=== PATIENT | male | born 1960 | race Caucasian/White ===

== ENCOUNTER → 2020-02-04 | Outpatient (CLI) | payer OTHER ==
[2020-02-04 12:22] LABS: HCT 41.3 % (39.0-53.0); HGB 14.1 gm/dL (13.0-17.5); MCH 34.3 pg (25.0-35.0); MCHC 34.2 g/dL (31.0-37.0); MCV 100.3 fL (80.0-100.0); Mean Platelet Volume 7.9; Platelet Count 100 k/uL (150-450); RBC 4.12 m/uL (4.30-5.90); WBC 4.2 k/uL (3.8-10.6)
[2020-02-04 12:34] LABS: Ionized Calcium 4.5 mg/dL (4.5-5.3)
[2020-02-04 19:41] LABS: Albumin 4.5 g/dL (3.80-4.90); Albumin/Globulin Ratio 2.14 (1.60-3.17); Bilirubin, Conjugated 0.4 mg/dL (0.20-0.40); Bilirubin,Unconjugated 0.9 mg/dL; Globulin 2.1 g/dL (1.6-3.3); Total Bilirubin 1.3 mg/dL (0.2-1.2); Total Protein 6.6 g/dL (6.2-8.2)
[2020-02-04 20:04] LABS: Hepatitis A Antibody IgM Non-Reactive (Non-Reactive); Hepatitis B Core IgM Non-Reactive (Non-Reactive); Hepatitis B Surface Antigen Non-Reactive (Non-Reactive); Hepatitis C IgG Antibody Non-Reactive (Non-Reactive)
[2020-02-04 22:19] LABS: Hemoglobin A1C 8.5 % (4.0-6.0)
== END | disposition home or self-care (01) ==
LOC: LABWHC1 11:33
PROVIDERS: ATTEND Internal Medicine
DX: I10 Essential (primary) hypertension (principal); E11.9 Type 2 diabetes mellitus without complications; R94.5 Abnormal results of liver function studies; H53.8 Other visual disturbances
CPT/HCPCS: 36415; 80074; 80076; 82330; 83036; 85027

== ENCOUNTER → 2020-10-12 | Outpatient (CLI) | payer OTHER ==
--- NOTE | 2020-10-12 10:00 | US ---
EXAMINATION TYPE: US liver DATE OF EXAM: 10/12/2020 COMPARISON: 0 CLINICAL HISTORY: R94.5 Abnormal liver function test. Abnormal LFT's EXAM MEASUREMENTS: Liver Length: 20.0 cm Gallbladder Wall: 0.2 cm CBD: 0.3 cm Right Kidney: 13.0 x 4.8 x 5.4 cm Pancreas: wnl, tail obscured by overlying bowel gas Liver: Enlarged Gallbladder: wnl Evidence for sonographic Archibald's sign: No CBD: wnl Right Kidney: wnl IMPRESSION: Hepatomegaly.
== END | disposition home or self-care (01) ==
LOC: RADUSWWP 09:34
PROVIDERS: ATTEND Internal Medicine
DX: R16.0 Hepatomegaly, not elsewhere classified (principal); R94.5 Abnormal results of liver function studies
CPT/HCPCS: 76705

== ENCOUNTER → 2020-10-27 | Outpatient (CLI) | payer OTHER ==
[2020-10-27 16:12] LABS: HGB 13.9 g/dL (13.0-17.0); MCH 33.8 pg (27.0-32.0); MCHC 33.9 g/dL (32.0-37.0); MCV 99.8 fL (80.0-97.0); Mean Platelet Volume 10.4 fL (9.5-12.2); Platelet Count 102 X 10*3/uL (140-440); RBC 4.11 X 10*6/uL (4.40-5.60)
[2020-10-27 17:09] LABS: INR 1.01 (0.90-1.11)
[2020-10-27 17:35] LABS: % Iron Saturation 36.44 (15.00-50.00); Albumin 4.7 g/dL (3.80-4.90); Albumin/Globulin Ratio 2.61 (1.60-3.17); Bilirubin, Conjugated 0.3 mg/dL (0.20-0.40); Bilirubin,Unconjugated 0.7 mg/dL; Globulin 1.8 g/dL (1.6-3.3); Total Protein 6.5 g/dL (6.2-8.2)
[2020-10-28 14:59] LABS: Albumin 4.19 g/dL (3.80-4.90); Gamma Globulin 0.89 g/dL (0.70-1.50)
== END | disposition home or self-care (01) ==
LOC: LABWHC1 09:58
PROVIDERS: ATTEND Physician Assistant
DX: R74.01 Elevation of levels of liver transaminase levels (principal)
CPT/HCPCS: 36415; 80076; 82103; 82390; 82728; 83516; 83540; 83550; 84165; 85027; 85610; 86038

== ENCOUNTER 2020-11-09 06:37 | Day surgery (SDC) | payer OTHER ==
[2020-11-05 08:18] VITALS: BMI 35.9
[~2020-11-09 06:37] MED LIST: LACTATED RINGERS 1,000 ML IV SCH; LIDOCAINE 1% (10MG/ML) FOR IV START INTRADERMA PRN
[2020-11-09 07:17] VITALS: TEMP 97.3
[2020-11-09 07:20] LABS: Glucose,Whole Blood 182 mg/dL (75-99)
[2020-11-09] MEDS ORDERED: PROPOFOL 10 MG/ML 20 ML VIAL IV ONE ×2 (07:38)
[2020-11-09 08:25] VITALS: RESP 16
--- NOTE | 2020-11-09 08:29 | P.PCN ---
Date of Procedure: 11/09/20 Description of Procedure: BRIEF HISTORY: Patient is a 60-year-old male presenting for outpatient colonoscopy for evaluation of family history of colon cancer. Last colonoscopy 5 years ago. He has a family history of colon cancer in his father. He denies any change in bowel habits or blood per rectum. PROCEDURE PERFORMED: Colonoscopy with polypectomy. PREOPERATIVE DIAGNOSIS: Family history of colon cancer, last colonoscopy 5 years ago. ESTIMATED BLOOD LOSS: Minimal. IV sedation per Anesthesia. PROCEDURE: After informed consent was obtained, the patient, was brought into the endoscopy unit. IV sedation was administered by Anesthesia under continuous monitoring. Digital rectal examination was normal. Initially the Olympus CF-190 flexible video colonoscope was then inserted in the rectum, gradually advanced into the cecum without any difficulty. Careful examination was performed as the scope was gradually being withdrawn. Ileocecal valve and the appendiceal orifice were visualized and appeared normal. Prep was excellent. Mucosa of the cecum, ascending colon, transverse colon, descending colon, sigmoid colon, and rectum appeared normal. A few scattered diverticula noted in the sigmoid colon. A flat 13 mm ascending colon polyp was removed with cold snare polypectomy. Retroflexion was performed in the rectum and no lesions were seen. The patient tolerated the procedure well. IMPRESSION: Large flat ascending colon polyp removed with cold snare polypectomy. Mild sigmoid diverticulosis.. RECOMMENDATIONS: Findings of this examination were discussed with the patient and his family. Okay to resume diet. Okay to resume medications. Await pathology from poly pectomy. Recommend repeat colonoscopy in 3 years for high risk polyp pending pathology from polypectomy.
[2020-11-09 08:41] VITALS: BP 124/79; PULSE 46
== END 2020-11-09 09:23 | disposition home or self-care (01) ==
LOC: ORWHC2ENDO 06:37
PROVIDERS: ATTEND Internal Medicine
DX: Z12.11 Encounter for screening for malignant neoplasm of colon (principal); D12.2 Benign neoplasm of ascending colon; K57.30 Diverticulosis of large intestine without perforation or abscess without bleeding; Z80.0 Family history of malignant neoplasm of digestive organs; I10 Essential (primary) hypertension; G47.33 Obstructive sleep apnea (adult) (pediatric); N28.9 Disorder of kidney and ureter, unspecified; E66.01 Morbid (severe) obesity due to excess calories; Z68.35 Body mass index [BMI] 35.0-35.9, adult; Z87.891 Personal history of nicotine dependence; Z98.890 Other specified postprocedural states; Z90.89 Acquired absence of other organs; Z79.84 Long term (current) use of oral hypoglycemic drugs; Z79.890 Hormone replacement therapy; Z79.899 Other long term (current) drug therapy; Z88.2 Allergy status to sulfonamides
CPT/HCPCS: 88305; 45385; J2704

== ENCOUNTER 2021-11-22 17:21 | Observation (INO) | payer OTHER ==
[2021-11-22 18:15] VITALS: TEMP 97.8
[2021-11-22] MEDS ORDERED: ONDANSETRON 4 MG/2 ML VIAL IVP STA (22:53)
[2021-11-22] MEDS ORDERED: SODIUM CHLORIDE 0.9% 1,000 ML IV STA (22:53)
--- NOTE | 2021-11-22 22:54 | ED ---
Weakness HPI - General Chief complaint: Dizziness Stated complaint: Dizzy,Vomiting Time Seen by Provider: 11/22/21 22:53 Source: patient, RN notes reviewed, old records reviewed Mode of arrival: ambulatory Limitations: no limitations - History of Present Illness Initial comments: This is a 61-year-old male DF for evaluation. Patient's going on 3 days of persistent nausea vomiting dizziness and not feeling well. She does have history of diabetes high blood pressure. Patient states he does feel high blood pressure is been acting up. Nausea, vomiting. No fevers. No diarrhea. No abdominal pain. Patient does feels that he may be dehydrated MD Complaint: generalized weakness, lack of energy -: days(s) (3) Location: generalized Severity: mild, moderate Severity scale (1-10): 4 Consistency: intermittent Improves with: none Worsens with: none Context: history of similar Associated Symptoms: loss of appetite, nausea/vomiting, myalgias - Related Data Home Medications Medication Instructions Recorded Confirmed Levothyroxine Sodium [Synthroid] 175 mcg PO DAILY 11/05/20 11/23/21 Losartan [Cozaar] 50 mg PO DAILY 11/05/20 11/23/21 Metoprolol Tartrate [Lopressor] 50 mg PO BID 11/05/20 11/23/21 metFORMIN HCL 500 mg PO TID 11/05/20 11/23/21 Liraglutide [Victoza 3-José Antonio] 1.8 mg SQ DAILY 11/23/21 11/23/21 Pioglitazone [Actos] 30 mg PO DAILY 11/23/21 11/23/21 Previous Rx's Medication Instructions Recorded Ondansetron [Zofran] 4 mg PO Q4H PRN #30 tab 11/23/21 Allergies Allergy/AdvReac Type Severity Reaction Status Date / Time Sulfa (Sulfonamide Allergy whole body Verified 11/23/21 07:02 Antibiotics) aches Review of Systems ROS Statement: Those systems with pertinent positive or pertinent negative responses have been documented in the HPI. ROS Other: All systems not noted in ROS Statement are negative. Past Medical History Past Medical History: Diabetes Mellitus, Hypertension, Sleep Apnea/CPAP/BIPAP, Thyroid Disorder Additional Past Medical History / Comment(s): hx migraines, elevated liver enzymes, History of Any Multi-Drug Resistant Organisms: None Reported Past Surgical History: Ear Surgery, Orthopedic Surgery, Tonsillectomy Additional Past Surgical History / Comment(s): colonoscopy, arthroscopy left knee, surgery for fx left shoulder, Past Anesthesia/Blood Transfusion Reactions: No Reported Reaction Past Psychological History: No Psychological Hx Reported Smoking Status: Former smoker Past Alcohol Use History: Occasional Past Drug Use History: None Reported - Past Family History Father Family Medical History: Cancer Additional Family Medical History / Comment(s): colon cancer Mother Family Medical History: Cancer Additional Family Medical History / Comment(s): skin General Exam Limitations: no limitations General appearance: alert, in no apparent distress Head exam: Present: atraumatic, normocephalic, normal inspection Eye exam: Present: normal appearance, PERRL, EOMI. Absent: scleral icterus, conjunctival injection, periorbital swelling ENT exam: Present: normal exam, mucous membranes moist Neck exam: Present: normal inspection. Absent: tenderness, meningismus, lymphadenopathy Respiratory exam: Present: normal lung sounds bilaterally. Absent: respiratory distress, wheezes, rales, rhonchi, stridor Cardiovascular Exam: Present: regular rate, normal rhythm, normal heart sounds. Absent: systolic murmur, diastolic murmur, rubs, gallop, clicks GI/Abdominal exam: Present: soft, normal bowel sounds. Absent: distended, tende rness, guarding, rebound, rigid Extremities exam: Present: normal inspection, full ROM, normal capillary refill. Absent: tenderness, pedal edema, joint swelling, calf tenderness Back exam: Present: normal inspection Neurological exam: Present: alert, oriented X3, CN II-XII intact Psychiatric exam: Present: normal affect, normal mood Skin exam: Present: warm, dry, intact, normal color. Absent: rash Course Vital Signs 11/22/21 11/22/21 11/23/21 18:13 23:44 00:30 Temperature 97.8 F Pulse Rate 68 65 70 Respiratory 20 16 18 Rate Blood Pressure 181/98 171/66 173/100 O2 Sat by Pulse 97 98 98 Oximetry 11/23/21 11/23/21 11/23/21 01:47 04:49 05:44 Temperature Pulse Rate 64 69 64 Respiratory 16 16 16 Rate Blood Pressure 156/89 130/80 134/81 O2 Sat by Pulse 97 95 96 Oximetry - Reevaluation(s) Reevaluation #1: Medical record is reviewed Patient maintained feel nauseous and not feel well here in the emergency department although improved Patient informed of results and questions answered - Consultations Consultation #1: Spoke with sound who agree to admit this patient EKG Findings - EKG Comments: EKG Findings:: EKG sinus rhythm 64 NM 250 QRS 157 QTc 466 Medical Decision Making - Medical Decision Making 61 male to the emergency department for severe dizziness nausea vomiting as well. Patient has mild troponin leak [place] for trending of troponin is IV hydration monitoring. - Lab Data Result diagrams: 11/23/21 05:45 11/23/21 05:45 Lab Results 11/22/21 11/22/21 11/22/21 Range/Units 23:44 23:44 23:44 WBC 4.0 (3.8-10.6) k/uL RBC 4.30 (4.30-5.90) m/uL Hgb 15.0 (13.0-17.5) gm/dL Hct 43.9 (39.0-53.0) % MCV 102.0 H (80.0-100.0) fL MCH 34.9 (25.0-35.0) pg MCHC 34.2 (31.0-37.0) g/dL RDW 12.9 (11.5-15.5) % Plt Count 98 L (150-450) k/uL MPV 7.7 Neutrophils % 45 % Lymphocytes % 44 % Monocytes % 6 % Eosinophils % 2 % Basophils % 0 % Neutrophils # 1.8 (1.3-7.7) k/uL Lymphocytes # 1.7 (1.0-4.8) k/uL Monocytes # 0.2 (0-1.0) k/uL Eosinophils # 0.1 (0-0.7) k/uL Basophils # 0.0 (0-0.2) k/uL Manual Slide Review Performed Macrocytosis Slight PT 11.2 (9.0-12.0) sec INR 1.0 (<1.2) APTT 22.8 (22.0-30.0) sec Sodium 137 (137-145) mmol/L Potassium 3.6 (3.5-5.1) mmol/L Chloride 104 (98-107) mmol/L Carbon Dioxide 22 (22-30) mmol/L Anion Gap 11 mmol/L BUN 10 (9-20) mg/dL Creatinine 0.60 L (0.66-1.25) mg/dL Est GFR (CKD-EPI)AfAm >90 (>60 ml/min/1.73 sqM) Est GFR (CKD-EPI)NonAf >90 (>60 ml/min/1.73 sqM) Glucose 132 H (74-99) mg/dL Plasma Lactic Acid Sergio (0.7-2.0) mmol/L Calcium 8.8 (8.4-10.2) mg/dL Phosphorus 4.1 (2.5-4.5) mg/dL Magnesium 2.2 (1.6-2.3) mg/dL Total Bilirubin 1.4 H (0.2-1.3) mg/dL AST 56 (17-59) U/L ALT 74 H (4-49) U/L Alkaline Phosphatase 69 (38-126) U/L Troponin I (0.000-0.034) ng/mL NT-Pro-B Natriuret Pep pg/mL Total Protein 8.0 (6.3-8.2) g/dL Albumin 4.8 (3.5-5.0) g/dL Urine Color Urine Appearance (Clear) Urine pH (5.0-8.0) Ur Specific [place] (1.001-1.035) Urine Protein (Negative) Urine Glucose (UA) (Negative) Urine Ketones (Negative) Urine Blood (Negative) Urine Nitrite (Negative) Urine Bilirubin (Negative) Urine Urobilinogen (<2.0) mg/dL Ur Leukocyte Esterase (Negative) Urine RBC (0-5) /hpf Urine WBC (0-5) /hpf Hyaline Casts (0-2) /lpf Urine Mucus (None) /hpf 11/22/21 11/22/21 11/22/21 Range/Units 23:44 23:44 23:44 WBC (3.8-10.6) k/uL RBC (4.30-5.90) m/uL Hgb (13.0-17.5) gm/dL Hct (39.0-53.0) % MCV (80.0-100.0) fL MCH (25.0-35.0) pg MCHC (31.0-37.0) g/dL RDW (11.5-15.5) % Plt Count (150-450) k/uL MPV Neutrophils % % Lymphocytes % % Monocytes % % Eosinophils % % Basophils % % Neutrophils # (1.3-7.7) k/uL Lymphocytes # (1.0-4.8) k/uL Monocytes # (0-1.0) k/uL Eosinophils # (0-0.7) k/uL Basophils # (0-0.2) k/uL Manual Slide Review Macrocytosis PT (9.0-12.0) sec INR (<1.2) APTT (22.0-30.0) sec Sodium (137-145) mmol/L Potassium (3.5-5.1) mmol/L Chloride (98-107) mmol/L Carbon Dioxide (22-30) mmol/L Anion Gap mmol/L BUN (9-20) mg/dL Creatinine (0.66-1.25) mg/dL Est GFR (CKD-EPI)AfAm (>60 ml/min/1.73 sqM) Est GFR (CKD-EPI)NonAf (>60 ml/min/1.73 sqM) Glucose (74-99) mg/dL Plasma Lactic Acid Sergio 1.3 (0.7-2.0) mmol/L Calcium (8.4-10.2) mg/dL Phosphorus (2.5-4.5) mg/dL Magnesium (1.6-2.3) mg/dL Total Bilirubin (0.2-1.3) mg/dL AST (17-59) U/L ALT (4-49) U/L Alkaline Phosphatase (38-126) U/L Troponin I 0.013 (0.000-0.034) ng/mL NT-Pro-B Natriuret Pep 88 pg/mL Total Protein (6.3-8.2) g/dL Albumin (3.5-5.0) g/dL Urine Color Urine Appearance (Clear) Urine pH (5.0-8.0) Ur Specific [place] (1.001-1.035) Urine Protein (Negative) Urine Glucose (UA) (Negative) Urine Ketones (Negative) Urine Blood (Negative) Urine Nitrite (Negative) Urine Bilirubin (Negative) Urine Urobilinogen (<2.0) mg/dL Ur Leukocyte Esterase (Negative) Urine RBC (0-5) /hpf Urine WBC (0-5) /hpf Hyaline Casts (0-2) /lpf Urine Mucus (None) /hpf 11/23/21 Range/Units 00:22 WBC (3.8-10.6) k/uL RBC (4.30-5.90) m/uL Hgb (13.0-17.5) gm/dL Hct (39.0-53.0) % MCV (80.0-100.0) fL MCH (25.0-35.0) pg MCHC (31.0-37.0) g/dL RDW (11.5-15.5) % Plt Count (150-450) k/uL MPV Neutrophils % % Lymphocytes % % Monocytes % % Eosinophils % % Basophils % % Neutrophils # (1.3-7.7) k/uL Lymphocytes # (1.0-4.8) k/uL Monocytes # (0-1.0) k/uL Eosinophils # (0-0.7) k/uL Basophils # (0-0.2) k/uL Manual Slide Review Macrocytosis PT (9.0-12.0) sec INR (<1.2) APTT (22.0-30.0) sec Sodium (137-145) mmol/L Potassium (3.5-5.1) mmol/L Chloride (98-107) mmol/L Carbon Dioxide (22-30) mmol/L Anion Gap mmol/L BUN (9-20) mg/dL Creatinine (0.66-1.25) mg/dL Est GFR (CKD-EPI)AfAm (>60 ml/min/1.73 sqM) Est GFR (CKD-EPI)NonAf (>60 ml/min/1.73 sqM) Glucose (74-99) mg/dL Plasma Lactic Acid Sergio (0.7-2.0) mmol/L Calcium (8.4-10.2) mg/dL Phosphorus (2.5-4.5) mg/dL Magnesium (1.6-2.3) mg/dL Total Bilirubin (0.2-1.3) mg/dL AST (17-59) U/L ALT (4-49) U/L Alkaline Phosphatase (38-126) U/L Troponin I (0.000-0.034) ng/mL NT-Pro-B Natriuret Pep pg/mL Total Protein (6.3-8.2) g/dL Albumin (3.5-5.0) g/dL Urine Color Yellow Urine Appearance Clear (Clear) Urine pH 6.0 (5.0-8.0) Ur Specific [place] 1.022 (1.001-1.035) Urine Protein 1+ H (Negative) Urine Glucose (UA) Trace H (Negative) Urine Ketones 1+ H (Negative) Urine Blood Negative (Negative) Urine Nitrite Negative (Negative) Urine Bilirubin Negative (Negative) Urine Urobilinogen 3.0 (<2.0) mg/dL Ur Leukocyte Esterase Negative (Negative) Urine RBC <1 (0-5) /hpf Urine WBC 1 (0-5) /hpf Hyaline Casts 3 H (0-2) /lpf Urine Mucus Many H (None) /hpf Disposition Clinical Impression: Dehydration, Nausea & vomiting Disposition: ADMITTED IP TO THIS [facility] Condition: Good Is patient prescribed a controlled substance at d/c from ED?: No
[2021-11-22] MEDS: SODIUM CHLORIDE 0.9% 1,000 ML IV STA (23:38)
[2021-11-23 00:03] LABS: Partial Thromboplastin Time 22.8 sec (22.0-30.0); Prothrombin Time 11.2 sec (9.0-12.0)
[2021-11-23 00:05] LABS: ALT 74 U/L (4-49); AST 56 U/L (17-59); African American GFR (CKD) >90 (>60 ml/min/1.73 sqM); Albumin 4.8 g/dL (3.5-5.0); Alkaline Phosphatase 69 U/L (38-126); Anion Gap 11 mmol/L; Blood Urea Nitrogen 10 mg/dL (9-20); Calcium 8.8 mg/dL (8.4-10.2); Carbon Dioxide 22 mmol/L (22-30); Chloride 104 mmol/L (98-107); Glucose 132 mg/dL (74-99); Magnesium 2.2 mg/dL (1.6-2.3); Non-African American GFR(CKD) >90 (>60 ml/min/1.73 sqM); Phosphorus 4.1 mg/dL (2.5-4.5); Potassium 3.6 mmol/L (3.5-5.1); Sodium 137 mmol/L (137-145); Total Bilirubin 1.4 mg/dL (0.2-1.3)
[2021-11-23 00:20] LABS: Basophils % (A) 0 %; Eosinophils # (A) 0.1 k/uL (0-0.7); Eosinophils % (A) 2 %; HCT 43.9 % (39.0-53.0); Lymphocytes # (A) 1.7 k/uL (1.0-4.8); Lymphocytes % (A) 44 %; MCH 34.9 pg (25.0-35.0); MCHC 34.2 g/dL (31.0-37.0); Macrocytosis Slight; Mean Platelet Volume 7.7; Monocytes # (A) 0.2 k/uL (0-1.0); Monocytes % (A) 6 %; Neutrophils # (A) 1.8 k/uL (1.3-7.7); Neutrophils % (A) 45 %; RDW 12.9 % (11.5-15.5)
[2021-11-23] MEDS: SODIUM CHLORIDE 0.9% 1,000 ML IV STA (00:43)
[2021-11-23 00:53] LABS: Appearance,Urine Clear (Clear); Bilirubin,Urine Negative (Negative); Blood,Urine Negative (Negative); Color,Urine Yellow; Glucose,Urine (UA) Trace (Negative); Hyaline Casts,Urine 3 /lpf (0-2); Ketones,Urine 1+ (Negative); Leukocyte Esterase,Urine Negative (Negative); Mucus,Urine Many /hpf; Nitrite,Urine Negative (Negative); Protein,Urine 1+ (Negative); RBC,Urine <1 /hpf (0-5); Specific Gravity,Urine 1.022 (1.001-1.035); WBC,Urine 1 /hpf (0-5)
[2021-11-23 00:59] LABS: Platelet Count 98 k/uL (150-450)
[2021-11-23 01:48] VITALS: RESP 16
[2021-11-23] MEDS ORDERED: NALOXONE 0.4 MG/ML 1 ML VIAL IV PRN (02:18)
[2021-11-23] MEDS ORDERED: LORazepam 2 MG/ML INJ IV PRN (02:18)
[2021-11-23] MEDS ORDERED: MORPHINE SULFATE 4 MG/ML SYRINGE IV PRN (02:18)
[2021-11-23] MEDS ORDERED: ONDANSETRON 4 MG/2 ML VIAL IVP PRN (02:18)
--- NOTE | 2021-11-23 04:09 | P.HPIM ---
History of Present Illness H&P Date: 11/23/21 Patient is a 59-year-old male with a PMH of type II DM, hypothyroidism, hypertension who presents to the emergency room with complaints of intractable nausea and vomiting. The patient reports that his symptoms started this past Sunday evening. He reports sudden onset of nausea with subsequent multiple episodes of vomiting. Denied noticing any blood or bile in the vomitus. Reports inability to tolerate liquids or solids since onset of symptoms. Reports noticing darker color to the urine but denied any additional complaints. Patient denied expressing chest discomfort, shortness of breath, or palpitations. He also denied nausea, vomiting, abdominal pain, diarrhea. Laboratory evaluation the emergency room was remarkable for troponin of 0.013, lactic acid 1.3, total bilirubin 1.4, platelets 98 with an unremarkable UA. An EKG revealed sinus rhythm with first-degree AV block with right bundle branch block at 64 bpm with no prior EKGs available for comparison. Review of systems: Pertinent positives and negatives as discussed in HPI, a complete review of systems was performed and all other systems are negative. Physical examination: General: non toxic, no distress, appears at stated age, obese Derm: no unusual rashes/lesions no unusual ecchymoses, warm, dry Head: atraumatic, normocephalic, symmetric Eyes: EOMI, no lid lag, anicteric sclera, pupils equal round reactive to light ENT: Nose and ears atraumatic, no thrush, no pharyngeal erythema Neck: No thyromegaly, no cervical lymphadenopathy, trachea midline, supple Mouth: no lip lesion, mucus membranes moist Cardiovascular: S1S2 reg, no murmur, positive posterior tibial pulse bilateral, no edema, capillary refill less than 2 seconds Lungs: CTA bilateral, no rhonchi, no rales , no accessory muscle use Abdominal: soft, nontender to palpation, no guarding, no appreciable organomegaly, normal bowel sounds Ext: no gross muscle atrophy, muscle strength 5 out of 5 in all 4 extremities grossly, no contractures, Neuro: CN II-XI grossly intact, light touch intact all 4 extremities, finger to nose within normal limits, Psych: Alert, oriented, appropriate affect Assessment/plan Intractable nausea and vomiting -Antiemetics -IV fluids Borderline elevated troponin, likely due to demand ischemia in setting of dehydr ation and vomiting -Continue to trend troponin -Cardiac monitoring -Patient denied chest discomfort or shortness of breath Thrombocytopenia, similar to baseline -Monitor for now Chronic conditions: Type II DM, hepatitis, hypertension -Check A1c -Insulin sliding scale and blood glucose monitoring -Continue with remaining home medications DVT prophylaxis -IPCDs The patient is admitted with an anticipated less than 2 midnight stay for evaluation of nausea and vomiting CODE STATUS: Full Code Discussed with: Patient Anticipated discharge date: 11/[address]: Home Past Medical History Past Medical History: Diabetes Mellitus, Hypertension, Sleep Apnea/CPAP/BIPAP, Thyroid Disorder Additional Past Medical History / Comment(s): hx migraines, elevated liver enzymes, History of Any Multi-Drug Resistant Organisms: None Reported Past Surgical History: Ear Surgery, Orthopedic Surgery, Tonsillectomy Additional Past Surgical History / Comment(s): colonoscopy, arthroscopy left knee, surgery for fx left shoulder, Past Anesthesia/Blood Transfusion Reactions: No Reported Reaction Past Psychological History: No Psychological Hx Reported Smoking Status: Former smoker Past Alcohol Use History: Occasional Past Drug Use History: None Reported - Past Family History Father Family Medical History: Cancer Additional Family Medical History / Comment(s): colon cancer Mother Family Medical History: Cancer Additional Family Medical History / Comment(s): skin Medications and Allergies Home Medications Medication Instructions Recorded Confirmed Type Glimepiride [Amaryl] 4 mg PO BID 11/05/20 11/05/20 History Levothyroxine Sodium [Synthroid] 175 mcg PO QAM 11/05/20 11/05/20 History Linagliptin [Tradjenta] 5 mg PO 199911/05/20 11/09/20 History Losartan [Cozaar] 50 mg PO HS 11/05/20 11/05/20 History Metoprolol Tartrate [Lopressor] 50 mg PO BID 11/05/20 11/05/20 History metFORMIN HCL 500 mg PO BID-W/MEALS 11/05/20 11/05/20 History Allergies Allergy/AdvReac Type Severity Reaction Status Date / Time Sulfa (Sulfonamide Allergy whole body Verified 11/09/20 07:04 Antibiotics) aches Physical Exam Vitals: Vital Signs Temp Pulse Resp BP Pulse Ox 11/23/21 01:47 64 16 156/89 97 11/23/21 00:30 70 18 173/100 98 11/22/21 23:44 65 16 171/66 98 11/22/21 18:13 97.8 F 68 20 181/98 97 Intake and Output 11/22/21 11/22/21 11/23/21 14:59 22:59 06:59 Other: Weight 113.398 kg Results CBC & Chem 7: 11/22/21 23:44 11/22/21 23:44 Labs: Abnormal Lab Results - Last 24 Hours (Table) 11/22/21 11/22/21 11/23/21 Range/Units 23:44 23:44 00:22 MCV 102.0 H (80.0-100.0) fL Plt Count 98 L (150-450) k/uL Creatinine 0.60 L (0.66-1.25) mg/dL Glucose 132 H (74-99) mg/dL Total Bilirubin 1.4 H (0.2-1.3) mg/dL ALT 74 H (4-49) U/L Urine Protein 1+ H (Negative) Urine Glucose (UA) Trace H (Negative) Urine Ketones 1+ H (Negative) Hyaline Casts 3 H (0-2) /lpf Urine Mucus Many H (None) /hpf
[2021-11-23 05:47] VITALS: BP 134/81; PULSE 64
[2021-11-23] MEDS ORDERED: INSULIN ASPART (NovoLOG) 100 UNIT/ML VIAL SQ SCH (07:30)
[2021-11-23 08:03] LABS: Glucose,Whole Blood 127 mg/dL (75-99)
[2021-11-23] MEDS: SODIUM CHLORIDE 0.9% 1,000 ML IV SCH ×2 (08:20→10:35)
[2021-11-23] MEDS ORDERED: LEVOTHYROXINE 75 MCG TAB PO SCH (09:00)
[2021-11-23] MEDS ORDERED: LOSARTAN 50 MG TAB PO SCH (09:00)
[2021-11-23] MEDS ORDERED: LEVOTHYROXINE 100 MCG TAB PO SCH (09:00)
[2021-11-23] MEDS ORDERED: METOPROLOL TARTRATE 50 MG TAB PO SCH (09:00)
[2021-11-23 10:41] LABS: African American GFR (CKD) 117.2 (60.0-200.0); Anion Gap 12.5 mmol/L (10.00-18.00); BUN/Creat Ratio 12.14 Ratio (12.00-20.00); Blood Urea Nitrogen 8.5 mg/dL (9.0-27.0); Calcium 8.4 mg/dL (8.7-10.3); Carbon Dioxide 24.5 mmol/L (20.0-27.5); Non-African American GFR(CKD) 101.1 (60.0-200.0); Potassium 3.5 mmol/L (3.5-5.5)
[2021-11-23 13:49] LABS: HGB 13.2 g/dL (13.0-17.0); MCH 34.1 pg (27.0-32.0); MCHC 33.8 g/dL (32.0-37.0); MCV 100.8 fL (80.0-97.0); Mean Platelet Volume 10.5 fL (9.5-12.2); NRBC Per 100 WBC 0 /100 WBCS (0.0-0.0); Platelet Count 94 X 10*3/uL (140-440); RBC 3.87 X 10*6/uL (4.40-5.60); RDW 12.6 % (11.5-14.5); WBC 4.44 X 10*3/uL (4.50-10.00)
--- NOTE | 2021-11-23 14:31 | P.DS ---
Providers Date of admission: 11/23/21 02:18 Expected date of discharge: 11/23/21 Attending physician: Blaise Desouza MD Primary care physician[facility] Course: Intractable nausea and vomiting Borderline elevated troponin, likely due to demand ischemia in setting of dehydration and vomiting Thrombocytopenia, similar to baseline Chronic conditions: Type II DM, hepatitis, hypertension Patient is a 59-year-old male with a PMH of type II DM, hypothyroidism, hypertension who presented to the emergency room with complaints of intractable nausea and vomiting. Laboratory evaluation the emergency room was remarkable for troponin of 0.013, lactic acid 1.3, total bilirubin 1.4, platelets 98 with an unremarkable UA. An EKG revealed sinus rhythm with first-degree AV block with right bundle branch block at 64 bpm with no prior EKGs available for comparison. Pt responded quickly to anti-emetics and IVF. By the time of my evaluation, patient reported resolution of nausea, no further emesis, and of having an appetite. He was able to tolerate a diet prior to discharge. I counseled patient on staying hydrated with water as well as replacing electrolyte losses with electrolyte rich fluid such as Pedialyte. Pt was amenable to going home given prompt resolution of symptoms, and was discharged home same day. Gen: awake, alert HEENT: normocephalic, atraumatic, good hearing acuity, moist mucous membranes Resp: good air exchange, breathing comfortably with no accessory muscle use CVS: good distal perfusion x 4, GI: soft, NTTP, ND : no SPT, no CVAT, brian catheter not present MSK: no pitting edema, no clubbing Neuro: non-focal, moving all extremities Psych: cooperative, euthymic mood Patient Condition at Discharge: Good Plan - Discharge Summary New Discharge Prescriptions: New Ondansetron [Zofran] 4 mg PO Q4H PRN #30 tab PRN Reason: Nausea Continue metFORMIN HCL 500 mg PO TID Losartan [Cozaar] 50 mg PO DAILY Levothyroxine Sodium [Synthroid] 175 mcg PO DAILY Metoprolol Tartrate [Lopressor] 50 mg PO BID Liraglutide [Victoza 3-José Antonio] 1.8 mg SQ DAILY Pioglitazone [Actos] 30 mg PO DAILY Discharge Medication List Levothyroxine Sodium [Synthroid] 175 mcg PO DAILY 11/05/20 [History] Losartan [Cozaar] 50 mg PO DAILY 11/05/20 [History] Metoprolol Tartrate [Lopressor] 50 mg PO BID 11/05/20 [History] metFORMIN HCL 500 mg PO TID 11/05/20 [History] Liraglutide [Victoza 3-José Antonio] 1.8 mg SQ DAILY 11/23/21 [History] Ondansetron [Zofran] 4 mg PO Q4H PRN #30 tab 11/23/21 [Rx] Pioglitazone [Actos] 30 mg PO DAILY 11/23/21 [History] Follow up Appointment(s)/Referral(s): Cristal Wu MD [Primary Care Provider] - 1-2 days Patient Instructions/Handouts: Dizziness (ED) Discharge Disposition: HOME SELF-CARE
[2021-11-23 17:01] LABS: RBC Morphology NORMAL
== END 2021-11-23 10:43 | disposition home or self-care (01) ==
LOC: EC 17:21 → 6NMEDSUR 11-23 02:18
PROVIDERS: ADMIT Internal Medicine; ATTEND Internal Medicine
DX: R11.2 Nausea with vomiting, unspecified (principal); R77.8 Other specified abnormalities of plasma proteins; E86.0 Dehydration; D69.6 Thrombocytopenia, unspecified; E11.9 Type 2 diabetes mellitus without complications; K75.9 Inflammatory liver disease, unspecified; I10 Essential (primary) hypertension; E03.9 Hypothyroidism, unspecified; R63.0 Anorexia; M79.10 Myalgia, unspecified site; G47.30 Sleep apnea, unspecified; G43.909 Migraine, unspecified, not intractable, without status migrainosus; I44.0 Atrioventricular block, first degree; I45.10 Unspecified right bundle-branch block; E66.9 Obesity, unspecified; Z68.33 Body mass index [BMI] 33.0-33.9, adult; Z87.891 Personal history of nicotine dependence; Z79.890 Hormone replacement therapy; Z79.899 Other long term (current) drug therapy; Z79.84 Long term (current) use of oral hypoglycemic drugs; Z88.2 Allergy status to sulfonamides; Z71.3 Dietary counseling and surveillance; Z80.0 Family history of malignant neoplasm of digestive organs; Z80.8 Family history of malignant neoplasm of other organs or systems
CPT/HCPCS: 96361 ×2; 96374; 99285; 36415; 93005; 83880; 80053; 80048; 83605; 83735; 84100; 84484 ×2; 85025; 85027; 85610; 85730; 81001; 83036; G0378; J2405

== ENCOUNTER 2022-11-28 05:45 | Day surgery (SDC) | payer OTHER ==
[~2022-11-28 05:45] MED LIST changes: -LIDOCAINE 1% (10MG/ML) FOR IV START INTRADERMA PRN
[2022-11-28 06:32] VITALS: TEMP 97.4
[2022-11-28 06:43] LABS: Glucose,Whole Blood 100 mg/dL (70-110)
[2022-11-28] MEDS ORDERED: PROPOFOL 10 MG/ML 20 ML VIAL IV ONE (07:00)
[2022-11-28] MEDS ORDERED: GLYCOPYRROLATE 0.2 MG/ML 2 ML VIAL ONE (07:00)
[2022-11-28] MEDS ORDERED: MIDAZOLAM 2 MG/2 ML VIAL ONE (07:00)
--- NOTE | 2022-11-28 07:26 | P.PCN ---
Date of Procedure: 11/28/22 Procedure(s) Performed: Brief history: Patient is a pleasant 62-year-old white male scheduled for an elective upper endoscopy as well as colonoscopy as a part of evaluation of recently diagnosis chronic liver disease/liver cirrhosis and screening for esophageal varices. He also has prior history of colon polyps and family history of colon cancer diagnosed in his father at age 70. Last colonoscopy was noted to have a large flat ascending colon polyp in November 2020 and biopsies revealed adenoma. Procedure performed: Esophagogastroduodenoscopy with biopsy Colonoscopy with snare polypectomy Preoperative diagnosis: History of chronic liver disease/liver cirrhosis/screening for esophageal varices History of colon polyps and family history of colon cancer Anesthesia: MAC Procedure: After informed consent was obtained from the patient was brought into the endoscopy unit and IV sedation was administered by anesthesia under continuous monitoring. Initially upper endoscopy was done. The Olympus GF 160 video endoscope was inserted inserted into the mouth and esophagus intubated without any difficulty and was gradually advanced into the stomach and duodenum and carefully examined. The bulb and second part of the duodenum appeared normal. The scope was then withdrawn into the stomach adequately insufflated with air and upon careful examination the antrum had mild gastritis and biopsies were done from this area. Mucosa of the body, cardia and fundus appeared normal. The scope was then withdrawn into the esophagus. The GE junction was located at 43 cm to the incisors. It appeared irregular and there was a 4 mm tongue of Rodriguez's appearing mucosa just proximal to the GE junction that was biopsied. The rest of esophagus appeared normal patient tolerated the procedure well. At this time the patient continued to remain sedation. Initial digital rectal examination was normal. Olympus CF 160 video colonoscope was then inserted into the rectum and gradually advanced to the cecum without any difficulty. Careful examination was performed as the scope was gradually being withdrawn. The prep was excellent. The cecum, ascending colon, appeared normal. In the transverse colon there was a 5 limited polyp removed by snare polypectomy. Rest of the transverse colon, descending colon, sigmoid colon and rectum appeared normal. Scattered sigmoid diverticulosis. Retroflexion was performed in the rectum and no lesions were noted. Patient tolerated the procedure well. Impression: 1. Upper endoscopy revealed mild antral gastritis and short segment Rodriguez's esophagus but no evidence of gastric or esophageal varices 2. Colonoscopy revealed 5 mm transverse colon polyp status post polypectomy and scattered sigmoid diverticulosis Recommendations: Findings of this examination were discussed with the patient as well as his family. He was advised to follow with the biopsy results. If the biopsy reveals adenoma he can have a repeat colonoscopy in 5 years.
[2022-11-28 07:36] VITALS: RESP 16
[2022-11-28 07:50] VITALS: BP 112/77; PULSE 60
== END 2022-11-28 08:10 | disposition home or self-care (01) ==
LOC: ORWHC2ENDO 05:45
PROVIDERS: ATTEND Internal Medicine Gastroenterology
DX: Z12.11 Encounter for screening for malignant neoplasm of colon (principal); K51.40 Inflammatory polyps of colon without complications; K57.30 Diverticulosis of large intestine without perforation or abscess without bleeding; K29.50 Unspecified chronic gastritis without bleeding; K31.A0 Gastric intestinal metaplasia, unspecified; K74.60 Unspecified cirrhosis of liver; I10 Essential (primary) hypertension; E78.5 Hyperlipidemia, unspecified; E07.9 Disorder of thyroid, unspecified; E11.9 Type 2 diabetes mellitus without complications; Z79.84 Long term (current) use of oral hypoglycemic drugs; Z79.890 Hormone replacement therapy; Z80.0 Family history of malignant neoplasm of digestive organs; Z79.899 Other long term (current) drug therapy; Z88.2 Allergy status to sulfonamides; Z98.890 Other specified postprocedural states
CPT/HCPCS: 88305; 45385; 43239; J2250; J2704

== ENCOUNTER → 2023-06-18 | Outpatient (CLI) | payer OTHER ==
--- NOTE | 2023-06-18 10:48 | US ---
EXAMINATION TYPE: US liver DATE OF EXAM: 06/18/2023 COMPARISON: NONE CLINICAL INDICATION: Male, 63 years old with history of K74.60 UNSPECIFIED CIRRHOSIS OF LIVER; cirrho sis TECHNIQUE: Multiple sonographic images of the right upper quadrant are obtained. FINDINGS: EXAM MEASUREMENTS: Liver Length: 20 cm Gallbladder Wall: .2 cm CBD: .3 cm Right Kidney: 12.2 x 4.7 x 4.7 cm Pancreas: Tail obscured by overlying bowel gas Liver: Increased attenuation hepatomegaly increased coarse echotexture with nodular contour. No tejinder picious observations. Gallbladder: No stones seen Evidence for sonographic Archibald's sign: No CBD: wnl Right Kidney: wnl IMPRESSION: Hepatic cirrhosis without evidence of suspicious observation. No acute process.
== END | disposition home or self-care (01) ==
LOC: RADUSWWP 10:01
PROVIDERS: ATTEND Internal Medicine Gastroenterology
DX: K74.60 Unspecified cirrhosis of liver (principal)
CPT/HCPCS: 76705

== ENCOUNTER → 2023-07-04 | Outpatient (CLI) | payer OTHER ==
[2023-07-04 11:15] LABS: Basophils # (A) 0.03 X 10*3/uL (0.00-0.10); Basophils % (A) 0.8 %; Eosinophils # (A) 0.13 X 10*3/uL (0.04-0.35); Eosinophils % (A) 3.7 %; HCT 42.1 % (39.6-50.0); HGB 13.8 d/dL (13.0-17.0); Lymphocytes # (A) 1.44 X 10*3/uL (0.90-5.00); Lymphocytes % (A) 40.8 %; MCH 33.7 pg (27.0-32.0); MCHC 32.8 d/dL (32.0-37.0); MCV 102.7 FL (80.0-97.0); Mean Platelet Volume 10.4 FL (9.5-12.2); Monocytes # (A) 0.43 X 10*3/uL (0.20-1.00); Monocytes % (A) 12.2 %; NRBC Per 100 WBC 0 X 10*3/uL (0.00-0.01); Neutrophils # (A) 1.47 X 10*3/uL (1.80-7.70); Neutrophils % (A) 41.7 %; Platelet Count 101 X 10*3/uL (140-440); RDW 12.9 % (11.5-14.5); WBC 3.53 X 10*3/uL (4.50-10.00)
[2023-07-04 12:08] LABS: % Iron Saturation 31.66 (15.00-50.00); ALT 49 U/L (10-49); AST 29 U/L (14-35); Albumin 4.5 d/dL (3.8-4.9); Albumin/Globulin Ratio 1.96 Ratio (1.60-3.17); Alkaline Phosphatase 87 U/L (41-126); Blood Urea Nitrogen 11.6 mg/dL (9.0-27.0); Calcium 8.8 mg/dL (8.7-10.3); Carbon Dioxide 24.9 mmol/L (21.6-31.8); Chloride 104 mmol/L (96-109); Globulin 2.3 d/dL (1.6-3.3); Glucose 202 mg/dL (70-110); Iron 126 UG/DL (65-175); Potassium 4.6 mmol/L (3.5-5.5); Sodium 141 mmol/L (135-145); Total Bilirubin 0.5 mg/dL (0.3-1.2); Total Iron Binding Capacity 398 UG/DL (228-460); Total Protein 6.8 d/dL (6.2-8.2)
== END | disposition home or self-care (01) ==
LOC: LABWHC1 06:58
PROVIDERS: ATTEND Internal Medicine Gastroenterology
DX: K74.60 Unspecified cirrhosis of liver (principal); R77.8 Other specified abnormalities of plasma proteins
CPT/HCPCS: 36415; 80053; 82105; 82728; 83540; 83550; 85025

== ENCOUNTER → 2023-11-12 | Outpatient (CLI) | payer OTHER ==
--- NOTE | 2023-11-12 07:52 | US ---
EXAMINATION TYPE: US liver DATE OF EXAM: 11/12/2023 COMPARISON: US - 06/28/2023 US - 10/12/2020 CLINICAL INDICATION: Male, 63 years old with history of K74.60 CIRRHOSIS OF LIVER; Patient denies any signs or symptoms or changes from prior exam TECHNIQUE: Multiple sonographic images of the right upper quadrant are obtained. 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 Enlarged Gallbladder: wnl Evidence for sonographic Archibald's sign: No CBD: wnl Right Kidney: wnl IMPRESSION: Borderline hepatomegaly.
== END | disposition home or self-care (01) ==
LOC: RADUSWWP 09:00
PROVIDERS: ATTEND Internal Medicine Gastroenterology
DX: R16.0 Hepatomegaly, not elsewhere classified (principal); K74.60 Unspecified cirrhosis of liver
CPT/HCPCS: 76705

== ENCOUNTER → 2023-12-19 | Outpatient (CLI) | payer OTHER, BC ==
[2023-12-19 11:21] LABS: Basophils # (A) 0.03 X 10*3/uL (0.00-0.10); Basophils % (A) 0.9 %; Eosinophils # (A) 0.18 X 10*3/uL (0.04-0.35); Eosinophils % (A) 5.4 %; HCT 44.6 % (39.6-50.0); HGB 14.5 g/dL (13.0-17.0); Lymphocytes # (A) 1.52 X 10*3/uL (0.90-5.00); Lymphocytes % (A) 45.5 %; MCH 33.7 pg (27.0-32.0); MCHC 32.5 g/dL (32.0-37.0); MCV 103.7 FL (80.0-97.0); Mean Platelet Volume 10.3 FL (9.5-12.2); Monocytes # (A) 0.39 X 10*3/uL (0.20-1.00); Monocytes % (A) 11.7 %; NRBC Per 100 WBC 0 X 10*3/uL (0.00-0.01); Neutrophils # (A) 1.21 X 10*3/uL (1.80-7.70); Neutrophils % (A) 36.2 %; Platelet Count 99 X 10*3/uL (140-440); RDW 12.6 % (11.5-14.5); WBC 3.34 X 10*3/uL (4.50-10.00)
[2023-12-19 11:55] LABS: % Iron Saturation 30.08 (15.00-50.00); ALT 55 U/L (10-49); AST 33 U/L (14-35); Albumin 4.6 g/dL (3.8-4.9); Albumin/Globulin Ratio 1.84 Ratio (1.60-3.17); Alkaline Phosphatase 79 U/L (41-126); BUN/Creat Ratio 24.38 Ratio (12.00-20.00); Blood Urea Nitrogen 19.5 mg/dL (9.0-27.0); Calcium 8.9 mg/dL (8.7-10.3); Carbon Dioxide 20.8 mmol/L (21.6-31.8); Chloride 107 mmol/L (96-109); Globulin 2.5 g/dL (1.6-3.3); Glucose 154 mg/dL (70-110); Iron 117 UG/DL (65-175); Potassium 4.2 mmol/L (3.5-5.5); Sodium 142 mmol/L (135-145); Total Bilirubin 0.5 mg/dL (0.3-1.2); Total Iron Binding Capacity 389 UG/DL (228-460); Total Protein 7.1 g/dL (6.2-8.2)
== END | disposition home or self-care (01) ==
LOC: LABWHC1 07:20
PROVIDERS: ATTEND Family Medicine
DX: K74.60 Unspecified cirrhosis of liver (principal); R77.8 Other specified abnormalities of plasma proteins
CPT/HCPCS: 36415; 80053; 82105; 82728; 83540; 83550; 85025

== ENCOUNTER → 2024-06-18 | Outpatient (CLI) | payer MEDICARE ==
--- NOTE | 2024-06-18 11:37 | US ---
EXAMINATION TYPE: US liver DATE OF EXAM: 06/18/2024 COMPARISON: 11/12/2023 CLINICAL INDICATION: Male, 64 years old with history of K74.60 UNSPECIFIED CIRRHOSIS OF LIVER; LFTS, cirrhosis TECHNIQUE: Grayscale and color Doppler imaging of the right upper quadrant was performed. FINDINGS: EXAM MEASUREMENTS: Liver Length: 17.8 cm Gallbladder Wall: 0.2 cm CBD: 0.3 cm Right Kidney: 13.8x5.0x5.1 cm MASH GRINDER NOTES: Pancreas: Obscured by bowel gas Liver: increased size, echogenicity, MPV appears prominent at 17mm Gallbladder: wnl Evidence for sonographic Archibald's sign: No CBD: wnl Right Kidney: wnl exam limited by bowel IMPRESSION: Mild hepatomegaly. Correlate for underlying hepatocellular disease. [facility], , 06/18/2024 11:35 AM
[2024-06-18 15:14] LABS: Basophils # (A) 0.04 X 10*3/uL (0.00-0.10); Basophils % (A) 1.3 %; Eosinophils # (A) 0.11 X 10*3/uL (0.04-0.35); Eosinophils % (A) 3.5 %; HCT 43.6 % (39.6-50.0); HGB 14.8 g/dL (13.0-17.0); Lymphocytes # (A) 1.16 X 10*3/uL (0.90-5.00); Lymphocytes % (A) 36.9 %; MCH 33.9 pg (27.0-32.0); MCHC 33.9 g/dL (32.0-37.0); Mean Platelet Volume 10.2 FL (9.5-12.2); Monocytes # (A) 0.46 X 10*3/uL (0.20-1.00); Monocytes % (A) 14.6 %; NRBC Per 100 WBC 0 X 10*3/uL (0.00-0.01); Neutrophils # (A) 1.36 X 10*3/uL (1.80-7.70); Neutrophils % (A) 43.4 %; Platelet Count 118 X 10*3/uL (140-440); RBC 4.36 X 10*6/uL (4.40-5.60); WBC 3.14 X 10*3/uL (4.50-10.00)
[2024-06-18 15:54] LABS: ALT 45 U/L (10-49); AST 39 U/L (14-35); Albumin 4.7 g/dL (3.8-4.9); Albumin/Globulin Ratio 1.81 Ratio (1.60-3.17); Alkaline Phosphatase 82 U/L (41-126); Blood Urea Nitrogen 14.4 mg/dL (9.0-27.0); Carbon Dioxide 24.7 mmol/L (21.6-31.8); Chloride 105 mmol/L (96-109); Globulin 2.6 g/dL (1.6-3.3); Glucose 147 mg/dL (70-110); Potassium 4.1 mmol/L (3.5-5.5); Sodium 143 mmol/L (135-145); Total Protein 7.3 g/dL (6.2-8.2)
== END | disposition home or self-care (01) ==
LOC: RADUSWWP 08:15
PROVIDERS: ATTEND Internal Medicine Gastroenterology
DX: K74.60 Unspecified cirrhosis of liver
CPT/HCPCS: 76705; 80053; 82105; 85025

== ENCOUNTER → 2024-12-17 | Outpatient (CLI) | payer MEDICARE ==
--- NOTE | 2024-12-17 10:34 | US ---
EXAMINATION TYPE: US liver DATE OF EXAM: 12/17/2024 COMPARISON: Prior liver ultrasound June 18, 2024 CLINICAL INDICATION: Male, 64 years old with history of K74.60 UNSPECIFIED CIRRHOSIS OF LIVER; Cirrho sis TECHNIQUE: Grayscale and color Doppler imaging of the right upper quadrant was performed. FINDINGS: EXAM MEASUREMENTS: Liver Length: 18.4 cm Gallbladder Wall: 0.3 cm CBD: 0.4 cm Right Kidney: 13.8 x 5.3 x 5.1 cm Pancreas: Obscured by bowel gas Liver: enlarged Gallbladder: no evidence of stones Evidence for sonographic Archibald's sign: no CBD: appears wnl Right Kidney: no evidence of hydronephrosis Persistent mild hepatomegaly. Persistent heterogeneous hyperechoic appearance. No new focal masses. IMPRESSION: Stable mild hepatomegaly. No new ascites or biliary dilatation noted. No significant villatoro ge from most recent prior. [facility], , 12/17/2024 10:31 AM
[2024-12-17 15:19] LABS: ALT 47 U/L (10-49); AST 33 U/L (14-35); Albumin 4.5 g/dL (3.8-4.9); Albumin/Globulin Ratio 1.88 Ratio (1.60-3.17); Alkaline Phosphatase 93 U/L (41-126); BUN/Creat Ratio 16.88 Ratio (12.00-20.00); Blood Urea Nitrogen 13.5 mg/dL (9.0-27.0); Calcium 9.1 mg/dL (8.7-10.3); Carbon Dioxide 23.9 mmol/L (21.6-31.8); Chloride 108 mmol/L (96-109); Globulin 2.4 g/dL (1.6-3.3); Glucose 139 mg/dL (70-110); Potassium 4.4 mmol/L (3.5-5.5); Sodium 143 mmol/L (135-145); Total Bilirubin 0.6 mg/dL (0.3-1.2); Total Protein 6.9 g/dL (6.2-8.2)
[2024-12-17 16:24] LABS: HCT 42.1 % (39.6-50.0); HGB 14.2 g/dL (13.0-17.0); MCHC 33.7 g/dL (32.0-37.0); MCV 100.7 FL (80.0-97.0); Mean Platelet Volume 10.6 FL (9.5-12.2); NRBC Per 100 WBC 0 X 10*3/uL (0.00-0.01); Platelet Count 98 X 10*3/uL (140-440); RBC 4.18 X 10*6/uL (4.40-5.60); RDW 12.5 % (11.5-14.5)
[2024-12-17 16:25] LABS: Basophils # (A) 0.03 X 10*3/uL (0.00-0.10); Basophils % (A) 0.9 %; Eosinophils # (A) 0.11 X 10*3/uL (0.04-0.35); Eosinophils % (A) 3.1 %; Lymphocytes # (A) 1.38 X 10*3/uL (0.90-5.00); Lymphocytes % (A) 39.4 %; Monocytes # (A) 0.38 X 10*3/uL (0.20-1.00); Monocytes % (A) 10.9 %; Neutrophils # (A) 1.58 X 10*3/uL (1.80-7.70); Neutrophils % (A) 45.1 %; RBC Morphology Normal (Normal)
== END | disposition home or self-care (01) ==
LOC: RADUSWWP 08:45
PROVIDERS: ATTEND Internal Medicine Gastroenterology
DX: K74.60 Unspecified cirrhosis of liver (principal); R16.0 Hepatomegaly, not elsewhere classified
CPT/HCPCS: 76705; 80053; 82105; 82728; 85025